=== PATIENT | female | born 2000 ===

== ENCOUNTER 2020-08-06 04:37 | Emergency (ER) | payer OTHER ==
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
[2020-08-06] MEDS ORDERED: Calcium Chloride 1 GM/10 ML Abboject SYRINGE ONE (14:25)
[2020-08-06] MEDS ORDERED: EPINEPHrine 1 MG/10 ML Abboject SYRINGE ONE (14:25)
[2020-08-06] MEDS ORDERED: Sodium Bicarb 50 MEQ/50 ML Abboject 8.4% SYRINGE ONE (14:25)
== END 2020-08-06 04:45 | disposition expired ==
LOC: ERS 04:37
DX: S31.131A Puncture wound of abdominal wall without foreign body, left upper quadrant without penetration into peritoneal cavity, initial encounter (principal); W34.00XA Accidental discharge from unspecified firearms or gun, initial encounter
CPT/HCPCS: 36430; 86850; 86900; 86901; 92950; 96374; 96375; G0390; J0171; P9016; P9048